=== PATIENT | female | born 1955 | race Caucasian/White ===

== ENCOUNTER 2023-07-04 10:58 | Day surgery (SDC) | payer OTHER ==
[~2023-07-04] VITALS: Ht 162.6 cm; Wt 93.9 kg
[~2023-07-04 10:58] MED LIST: ceFAZolin SODIUM 2 GM in D5W 50 ML IV ONE
[2023-07-04] MEDS ORDERED: DEXAMETHASONE SOD PHOSPHATE 4 MG/ML VIAL ONE (12:55)
[2023-07-04] MEDS ORDERED: LR 1,000 ML IV.SOLN IV ONE (12:55)
[2023-07-04] MEDS ORDERED: BUPIVACAINE /EPINEPHRINE/PF 0.5% 30 ML VIAL INJ ONE (12:55)
[2023-07-04] MEDS ORDERED: NS 1000 ML IV.SOLN IV ONE (12:55)
[2023-07-04] MEDS ORDERED: WATER FOR IRRIGATION,STERILE 1,000 ML IRRIG.SOLN IR ONE (12:55)
[2023-07-04] MEDS ORDERED: BUPIVACAINE /PF 0.25% 30 ML VIAL INJ ONE (12:55)
[2023-07-04] MEDS ORDERED: LIDOCAINE 2%, 20 ML MDV ONE (12:55)
[2023-07-04] MEDS ORDERED: ONDANSETRON HCL 4 MG/2 ML VIAL ONE (12:55)
[2023-07-04] MEDS ORDERED: KETOROLAC TROMETHAMINE 30 MG VIAL ONE (12:55)
[2023-07-04] MEDS ORDERED: DESFLURANE 15 MIN GAS INH ONE (12:55)
[2023-07-04] MEDS ORDERED: ROCURONIUM BROMIDE 10 MG/ML (ZEMURON) ONE (12:55)
[2023-07-04] MEDS ORDERED: NS IRRIG SOLN 1000 ML IR ONE (12:55)
[2023-07-04] MEDS ORDERED: LR 1,000 ML IV SCH (14:00)
[2023-07-04] MEDS ORDERED: HYDROmorphone 1 MG/ML INJ. CARTRIDGE IVP PRN ×2 (14:00)
[2023-07-04] MEDS ORDERED: METOCLOPRAMIDE HCL 10 MG/2 ML VIAL IVP PRN (14:00)
[2023-07-04] MEDS ORDERED: LABETALOL 100 MG/ 20ML VIAL IVP PRN (14:00)
[2023-07-04] MEDS ORDERED: PRO40 PO (14:16)
[2023-07-04] MEDS ORDERED: AMLO5TAB4 PO (14:16)
[2023-07-04] MEDS ORDERED: TOPXL100 PO (14:16)
[2023-07-04] MEDS ORDERED: LOSA-413 PO (14:16)
[2023-07-04] MEDS ORDERED: INSU100V9 SQ (14:16)
[2023-07-04] MEDS ORDERED: SEMA0.258 SQ (14:16)
[2023-07-04] MEDS ORDERED: SITA1TBM7 PO (14:16)
[2023-07-04] MEDS ORDERED: EVOL140P3 SQ (14:16)
[2023-07-04] MEDS ORDERED: ACETAMINOPHEN I.V. 1000 MG 100 ML IV ONE (14:56)
[2023-07-04] MEDS ORDERED: HYDROcodone/ACETAMIN 5-325 MG TAB (NORCO/ VICODIN) PO PRN (15:30)
[2023-07-04] MEDS ORDERED: OXYCODONE/ACETAMINOPHEN 5-325 TABLET PO PRN (15:30)
[2023-07-04] MEDS ORDERED: MEPERIDINE HCL/PF 25 MG/ML DISP.SYRIN ONE (16:15)
[2023-07-04] MEDS: MEPERIDINE HCL/PF 25 MG/ML DISP.SYRIN IVP PRN (16:15)
[2023-07-04] MEDS: hydrALAZINE HCL 20 MG/ML VIAL IVP PRN (16:33)
[2023-07-04] MEDS ORDERED: hydrALAZINE HCL 20 MG/ML VIAL ONE (16:37)
[2023-07-04] MEDS: ONDANSETRON HCL 4 MG/2 ML VIAL IVP PRN (17:51)
[2023-07-04 17:59] VITALS: BP_SYST 130; PULSE 54; RESP 18; TEMP 96.3; O2SAT 100
[2023-07-04 20:00] VITALS: BP_SYST 143; PULSE 69; RESP 16; TEMP 96.7; O2SAT 98
[2023-07-04] MEDS: OXYCODONE/ACETAMINOPHEN 5-325 TABLET PO PRN (20:31)
[2023-07-04] MEDS: ceFAZolin SODIUM 2 GM in D5W 100 ML IV SCH (21:26)
[2023-07-04 22:09] VITALS: O2SAT 98
[2023-07-05 00:12] VITALS: BP_SYST 150; PULSE 74; RESP 16; TEMP 97.3; O2SAT 100
[2023-07-05 08:00] VITALS: BP_SYST 121; BP_SYST 141; PULSE 108; PULSE 68; RESP 16; RESP 18; TEMP 96.6; TEMP 97; O2SAT 92; O2SAT 93; O2SAT 98
[2023-07-05 09:36] VITALS: BP_SYST 141; PULSE 69; RESP 16; TEMP 96.6; O2SAT 93
== END 2023-07-05 10:32 | disposition home or self-care (01) ==
LOC: SDS 10:58 → SMU 10:59 → SDS 07-05 10:32
PROVIDERS: ATTEND Specialist
DX: N95.0 Postmenopausal bleeding (principal); D25.0 Submucous leiomyoma of uterus; N72 Inflammatory disease of cervix uteri; R10.2 Pelvic and perineal pain; E11.9 Type 2 diabetes mellitus without complications; E78.00 Pure hypercholesterolemia, unspecified; K21.9 Gastro-esophageal reflux disease without esophagitis; E66.01 Morbid (severe) obesity due to excess calories; Z68.35 Body mass index [BMI] 35.0-35.9, adult; Z90.89 Acquired absence of other organs; Z98.890 Other specified postprocedural states; Z79.899 Other long term (current) drug therapy
CPT/HCPCS: 58552; 87081; 82948; 88307; J3490 ×2; J1100; J0360; J1885; J2405; J2175; J7060 ×2; J7120; J7030; J0131; C1727; E0190; J2001